=== PATIENT | male | born 1980 | race African-American/Black ===

== ENCOUNTER 2018-04-19 08:05 | Emergency (ER) | payer MEDICAID, OTHER ==
[~2018-04-19] VITALS: Ht 172.7 cm; Wt 60.0 kg
[~2018-04-19 08:05] MED LIST: INSULIN
[2018-04-19 08:33] VITALS: BP 155/94
[2018-04-19 09:31] LABS: BASOPHILS % 0.4 % (0.0-2.0); EOSINOPHILS % 0.4 % (0.0-5.0); HEMATOCRIT. 44.6 % (42.0-52.0); HEMOGLOBIN. 14.9 g/dL (14.0-18.0); LYMPHOCYTES % 13.2 % (20.0-50.0); MEAN CORPUSCULAR HEMOGLOBIN 31.4 pg (28.0-32.0); MEAN CORPUSCULAR VOLUME 94.1 fL (80.0-94.0); MEAN PLATELET VOLUME 9.5 fl (7.4-10.4); MONOCYTES % 5.9 % (2.0-8.0); NEUTROPHILS % 80.1 % (40.0-76.0); PLATELET 197 x1000/uL (130-400); RED BLOOD CELL COUNT 4.74 mill/uL (4.7-6.1); RED CELL DISTRIBUTION WIDTH 13.8 % (11.6-14.6)
[2018-04-19 09:34] LABS: CHLORIDE 103 mEq/L (98-107)
== END 2018-04-19 10:38 | disposition home or self-care (01) ==
LOC: ER 08:05
DX: E11.649 Type 2 diabetes mellitus with hypoglycemia without coma (principal); I45.10 Unspecified right bundle-branch block; Z79.4 Long term (current) use of insulin; W01.0XXA Fall on same level from slipping, tripping and stumbling without subsequent striking against object, initial encounter; Y93.89 Activity, other specified; Y92.018 Other place in single-family (private) house as the place of occurrence of the external cause
CPT/HCPCS: 36415; 80053; 82962; 85025; 93005; 99285

== ENCOUNTER 2018-04-25 12:15 | Emergency (ER) | payer MEDICAID ==
[~2018-04-25] VITALS: Ht 167.6 cm; Wt 71.0 kg
[2018-04-25 12:16] VITALS: BP 186/92
== END 2018-04-25 13:14 | disposition left against medical advice (07) ==
LOC: ER 12:24
DX: E16.2 Hypoglycemia, unspecified (principal); Z53.21 Procedure and treatment not carried out due to patient leaving prior to being seen by health care provider

== ENCOUNTER 2018-12-08 09:29 | Inpatient (IN) | payer MEDICAID ==
[~2018-12-08] VITALS: Ht 165.1 cm; Wt 61.2 kg
[2018-12-08] MEDS ORDERED: PIPERACILLIN/TAZ 3.375G PREMIX 50 ML IV ONE (10:30)
[2018-12-08] MEDS ORDERED: VANCOMYCIN 1 G PREMIX 200 ML IV ONE (10:30)
[2018-12-08] MEDS ORDERED: HYDROCODONE/ACETAMINOPHEN 5/325MG TABLET PO ONE (10:30)
[2018-12-08] MEDS ORDERED: ONDANSETRON HCL 4MG/2ML INJ IV ONE (10:30)
[2018-12-08] MEDS ORDERED: SODIUM CHLORIDE 0.9% 1000ML BAG (SEPSIS BOLUS) IV ONE (10:30)
[2018-12-08 10:39] LABS: BASOPHILS % 0.9 % (0.0-2.0); EOSINOPHILS % 1.9 % (0.0-5.0); HEMATOCRIT. 42.4 % (42.0-52.0); HEMOGLOBIN. 13.9 g/dL (14.0-18.0); LYMPHOCYTES % 14.5 % (20.0-50.0); MEAN CORPUSCULAR HEMOGLOBIN 30.1 pg (28.0-32.0); MEAN CORPUSCULAR VOLUME 91.6 fL (80.0-94.0); MEAN PLATELET VOLUME 9.5 fl (7.4-10.4); NEUTROPHILS % 75.7 % (40.0-76.0); PLATELET 423 x1000/uL (130-400); RED BLOOD CELL COUNT 4.63 mill/uL (4.7-6.1); RED CELL DISTRIBUTION WIDTH 12.4 % (11.6-14.6)
[2018-12-08 10:45] LABS: CHLORIDE 97 mEq/L (98-107)
[2018-12-08 10:49] LABS: ETHANOL BLOOD < 10 mg/dL
[2018-12-08 13:10] LABS: CLARITY URINE CLEAR (CLEAR); COLOR URINE YELLOW (YELLOW); KETONES URINE 1+ (NEGATIVE); LEUKOCYTE ESTERASE URINE NEGATIVE (NEGATIVE); NITRITE URINE NEGATIVE (NEGATIVE); OCCULT BLOOD URINE TRACE (NEGATIVE); PH URINE 5.5 (4.5-8.0); PROTEIN URINE 3+ (NEGATIVE); SPECIFIC GRAVITY URINE 1.026 (1.005-1.030); UROBILINOGEN URINE 0.2 E.U./dL (0.2-1.0)
[2018-12-08 14:21] LABS: *AMPHETAMINES SCREEN URINE NEGATIVE (NEGATIVE); *BARBITURATES SCREEN URINE NEGATIVE (NEGATIVE); *BENZODIAZEPINES SCREEN URINE NEGATIVE (NEGATIVE); *COCAINE SCREEN URINE NEGATIVE (NEGATIVE); METHADONE URINE SCREEN NEGATIVE (NEGATIVE)
[2018-12-08 14:22] LABS: CANNABINOID URINE SCREEN PRESUMTIVE POSITIVE (NEGATIVE); OPIATES URINE SCREEN NEGATIVE (NEGATIVE); PHENCYCLIDINE URINE SCREEN NEGATIVE (NEGATIVE)
[2018-12-08] MEDS ORDERED: INSULIN REGULAR (HUMULIN R) 300UNITS/3ML IV ONE (15:00)
[2018-12-08] MEDS ORDERED: DOCUSATE SODIUM 100MG CAPSULE PO PRN (15:15)
[2018-12-08] MEDS ORDERED: ONDANSETRON HCL 4MG/2ML INJ IV PRN (15:15)
[2018-12-08] MEDS ORDERED: DEXTROSE 50% WATER 50ML SYRINGE IV PRN ×3 (15:15→17:45)
[2018-12-08] MEDS ORDERED: ACETAMINOPHEN 650MG/20.3ML UDC GT PRN (15:15)
[2018-12-08] MEDS: HYDROCODONE/ACETAMINOPHEN 5/325MG TABLET PO PRN ×2 (16:50→22:28)
[2018-12-08 17:09] VITALS: BP 168/78
[2018-12-08] MEDS: BLOOD SUGAR DIAGNOSTIC STRIP TEST SCH ×2 (17:20→21:00)
[2018-12-08] MEDS ORDERED: INSULIN LISPRO 100 UNITS/ML SUBCUT SCH ×2 (17:45→17:50)
[2018-12-08] MEDS: INSULIN LISPRO 100 UNITS/ML SUBCUT SCH ×2 (18:19→21:41)
[2018-12-08 20:00] VITALS: BP 149/83
[2018-12-08] MEDS ORDERED: INSULIN GLARGINE UD 100 UNITS/ML SYR SUBCUT SCH (22:00)
[2018-12-08] MEDS: VANCOMYCIN 1250MG in DEXTROSE 5% WATER 250ML IV SCH (22:28)
[2018-12-08] MEDS: INSULIN GLARGINE UD 100 UNITS/ML SYR SUBCUT SCH (22:48)
[2018-12-08] MEDS: PIPERACILLIN/TAZ 3.375G PREMIX 50 ML IV SCH (22:55)
[2018-12-09] VITALS: BP 132/79
[2018-12-09] MEDS: PIPERACILLIN/TAZ 3.375G PREMIX 50 ML IV SCH ×4 (02:17→20:25)
[2018-12-09 04:00] VITALS: BP 153/73
[2018-12-09] MEDS: VANCOMYCIN 1250MG in DEXTROSE 5% WATER 250ML IV SCH ×3 (05:18→21:56)
[2018-12-09 05:49] LABS: HEMATOCRIT. 35.5 % (42.0-52.0); HEMOGLOBIN. 11.9 g/dL (14.0-18.0); LYMPHOCYTES % 19.8 % (20.0-50.0); MEAN CORPUSCULAR HEMOGLOBIN 30.6 pg (28.0-32.0); MEAN CORPUSCULAR VOLUME 91.5 fL (80.0-94.0); MEAN PLATELET VOLUME 9.6 fl (7.4-10.4); MONOCYTES % 7.2 % (2.0-8.0); PLATELET 366 x1000/uL (130-400); RED BLOOD CELL COUNT 3.88 mill/uL (4.7-6.1)
[2018-12-09] MEDS: BLOOD SUGAR DIAGNOSTIC STRIP TEST SCH ×4 (06:34→21:57)
[2018-12-09] MEDS: OMEPRAZOLE 20MG CAPSULE EXTENDED RELEASE PO SCH (06:34)
[2018-12-09 06:51] LABS: CHLORIDE 102 mEq/L (98-107)
[2018-12-09] MEDS: INSULIN LISPRO 100 UNITS/ML SUBCUT SCH ×4 (07:50→23:06)
[2018-12-09 08:00] VITALS: BP 176/90
[2018-12-09] MEDS: HYDROCODONE/ACETAMINOPHEN 5/325MG TABLET PO PRN (09:04)
[2018-12-09 12:00] VITALS: BP 171/85
[2018-12-09] MEDS ORDERED: LISINOPRIL 10MG TABLET PO SCH (14:15)
[2018-12-09] MEDS ORDERED: TETANUS, DIPHTHERIA, PERTUSSIS VAC/PF 0.5ML (>7YR OLD) IM ONE (15:45)
[2018-12-09 16:00] VITALS: BP 184/85
[2018-12-09 20:00] VITALS: BP 158/86
[2018-12-09] MEDS: ATORVASTATIN CALCIUM 20MG TABLET PO SCH (20:35)
[2018-12-09] MEDS: AMLODIPINE 5MG TABLET PO SCH (20:36)
[2018-12-09] MEDS: LISINOPRIL 10MG TABLET PO SCH (20:36)
[2018-12-09] MEDS: INSULIN GLARGINE UD 100 UNITS/ML SYR SUBCUT SCH (23:06)
[2018-12-10] VITALS: BP 136/64
[2018-12-10] MEDS: PIPERACILLIN/TAZ 3.375G PREMIX 50 ML IV SCH ×4 (01:01→20:00)
[2018-12-10 04:00] VITALS: BP 134/81
[2018-12-10] MEDS: VANCOMYCIN 1250MG in DEXTROSE 5% WATER 250ML IV SCH ×3 (06:23→21:54)
[2018-12-10] MEDS: BLOOD SUGAR DIAGNOSTIC STRIP TEST SCH ×4 (06:24→20:50)
[2018-12-10] MEDS: OMEPRAZOLE 20MG CAPSULE EXTENDED RELEASE PO SCH (06:24)
[2018-12-10 07:08] LABS: BASOPHILS % 1.1 % (0.0-2.0); EOSINOPHILS % 2.2 % (0.0-5.0); HEMOGLOBIN. 12.6 g/dL (14.0-18.0); LYMPHOCYTES % 19.5 % (20.0-50.0); MEAN CORPUSCULAR HEMOGLOBIN 30.2 pg (28.0-32.0); MEAN CORPUSCULAR VOLUME 91.3 fL (80.0-94.0); MEAN PLATELET VOLUME 9.8 fl (7.4-10.4); MONOCYTES % 6.1 % (2.0-8.0); NEUTROPHILS % 71.1 % (40.0-76.0); PLATELET 375 x1000/uL (130-400); RED BLOOD CELL COUNT 4.16 mill/uL (4.7-6.1); RED CELL DISTRIBUTION WIDTH 12.1 % (11.6-14.6)
[2018-12-10 08:00] VITALS: BP 137/72
[2018-12-10 08:37] LABS: CHLORIDE 97 mEq/L (98-107)
[2018-12-10] MEDS: LISINOPRIL 10MG TABLET PO SCH ×2 (08:48→20:50)
[2018-12-10] MEDS: AMLODIPINE 5MG TABLET PO SCH ×2 (08:49→20:50)
[2018-12-10 09:00] LABS: LDL CHOLESTEROL 83 mg/dL (5-100)
[2018-12-10 09:01] LABS: HDL CHOLESTEROL 47 mg/dL (40-59)
[2018-12-10] MEDS: INSULIN LISPRO 100 UNITS/ML SUBCUT SCH ×4 (09:07→22:07)
[2018-12-10] MEDS: HYDROCODONE/ACETAMINOPHEN 5/325MG TABLET PO PRN ×2 (09:31→22:01)
[2018-12-10 12:00] VITALS: BP 123/66
[2018-12-10 16:00] VITALS: BP 145/79
[2018-12-10 20:00] VITALS: BP 152/82
[2018-12-10] MEDS: ATORVASTATIN CALCIUM 20MG TABLET PO SCH (20:50)
[2018-12-10] MEDS ORDERED: INSULIN GLARGINE UD 100 UNITS/ML SYR SUBCUT SCH (22:00)
[2018-12-11] VITALS: BP 125/63
[2018-12-11] MEDS: PIPERACILLIN/TAZ 3.375G PREMIX 50 ML IV SCH ×3 (01:58→13:48)
[2018-12-11 04:00] VITALS: BP 105/63
[2018-12-11] MEDS: VANCOMYCIN 1250MG in DEXTROSE 5% WATER 250ML IV SCH ×2 (06:00→14:56)
[2018-12-11] MEDS: BLOOD SUGAR DIAGNOSTIC STRIP TEST SCH ×2 (06:34→12:20)
[2018-12-11 08:00] VITALS: BP 147/76
[2018-12-11 08:03] LABS: CHLORIDE 100 mEq/L (98-107)
[2018-12-11 08:08] LABS: BASOPHILS % 0.7 % (0.0-2.0); EOSINOPHILS % 2.4 % (0.0-5.0); HEMATOCRIT. 35.1 % (42.0-52.0); HEMOGLOBIN. 11.6 g/dL (14.0-18.0); LYMPHOCYTES % 20.3 % (20.0-50.0); MEAN CORPUSCULAR HEMOGLOBIN 30.5 pg (28.0-32.0); MEAN CORPUSCULAR VOLUME 92.2 fL (80.0-94.0); MEAN PLATELET VOLUME 9.3 fl (7.4-10.4); MONOCYTES % 6.9 % (2.0-8.0); NEUTROPHILS % 69.7 % (40.0-76.0); PLATELET 401 x1000/uL (130-400); RED BLOOD CELL COUNT 3.81 mill/uL (4.7-6.1); RED CELL DISTRIBUTION WIDTH 12.2 % (11.6-14.6)
[2018-12-11] MEDS: LISINOPRIL 10MG TABLET PO SCH (08:49)
[2018-12-11] MEDS: AMLODIPINE 5MG TABLET PO SCH (08:49)
[2018-12-11] MEDS: INSULIN LISPRO 100 UNITS/ML SUBCUT SCH ×2 (08:54→13:56)
[2018-12-11] MEDS: HYDROCODONE/ACETAMINOPHEN 5/325MG TABLET PO PRN (08:57)
[2018-12-11] MEDS ORDERED: FAMOTIDINE 20MG TABLET PO SCH (09:00)
[2018-12-11] MEDS ORDERED: LIDOCAINE HCL 1% 20ML VIAL (Pyxis) INJ ONE ×2 (09:45→10:17)
[2018-12-11] MEDS ORDERED: SODIUM BICARBONATE 4% (2.4MEQ) 5ML VIAL IV ONE (09:45)
[2018-12-11 12:00] VITALS: BP 139/80
[2018-12-11] MEDS ORDERED: INSULIN GLARGINE UD 100 UNITS/ML SYR SUBCUT NR (13:30)
[2018-12-11 16:00] VITALS: BP 117/67
[2018-12-11 16:01] VITALS: BP 139/80
== END 2018-12-11 19:13 | disposition home or self-care (01) | DRG 344 ==
LOC: ER 09:40 → 6EST 11:46 → EDBEDREQ 11:52 → ENRESERV 13:03
PROVIDERS: ADMIT Family Medicine Adult Medicine; ATTEND Family Medicine Adult Medicine
PROC: 02HV33Z Insertion of Infusion Device into Superior Vena Cava, Percutaneous Approach (ICD-10-PCS; principal; 2018-12-11)
PROC: B5181ZA Fluoroscopy of Superior Vena Cava using Low Osmolar Contrast, Guidance (ICD-10-PCS; 2018-12-11)
PROC: B548ZZA Ultrasonography of Superior Vena Cava, Guidance (ICD-10-PCS; 2018-12-11)
DX: E10.69 Type 1 diabetes mellitus with other specified complication (principal); M86.8X7 Other osteomyelitis, ankle and foot; E43 Unspecified severe protein-calorie malnutrition; A48.0 Gas gangrene; E10.52 Type 1 diabetes mellitus with diabetic peripheral angiopathy with gangrene; E10.65 Type 1 diabetes mellitus with hyperglycemia; E87.1 Hypo-osmolality and hyponatremia; L97.529 Non-pressure chronic ulcer of other part of left foot with unspecified severity; D64.9 Anemia, unspecified; I10 Essential (primary) hypertension; F17.290 Nicotine dependence, other tobacco product, uncomplicated; Z83.3 Family history of diabetes mellitus; Z79.4 Long term (current) use of insulin; Z82.49 Family history of ischemic heart disease and other diseases of the circulatory system
CPT/HCPCS: 36415; 36569; 71045; 73630; 73721; 76937; 77001; 80048; 80061; 80202; 80305; 82962; 83036; 83605; 84145; 85651; 86140; 90715; 93005; 93306; 93922; 96361; 96374; 99285; C1725; G0482; J1815; J2405; J2543; J3370; J3490; J7030; J7040; J7060

== ENCOUNTER 2019-10-21 23:23 | Inpatient (IN) | payer MEDICAID ==
[~2019-10-21] VITALS: Ht 167.6 cm; Wt 53.1 kg
[2019-10-21] MEDS ORDERED: ONDANSETRON HCL 4MG/2ML INJ IV STA (23:47)
[2019-10-21] MEDS ORDERED: SODIUM CHLORIDE 0.9% 1,000 ML IV ONE (23:47)
[2019-10-22] VITALS (7 sets, daily range): BP systolic 154–197; BP diastolic 69–99
[2019-10-22 00:23] LABS: CLARITY URINE CLEAR (CLEAR); COLOR URINE YELLOW (YELLOW); KETONES URINE 4+ (NEGATIVE); LEUKOCYTE ESTERASE URINE NEGATIVE (NEGATIVE); NITRITE URINE NEGATIVE (NEGATIVE); OCCULT BLOOD URINE TRACE (NEGATIVE); PROTEIN URINE 1+ (NEGATIVE); SPECIFIC GRAVITY URINE 1.031 (1.005-1.030); UROBILINOGEN URINE 0.2 E.U./dL (0.2-1.0)
[2019-10-22 00:23] LABS: HEMATOCRIT. 43.9 % (42.0-52.0); HEMOGLOBIN. 14.4 g/dL (14.0-18.0); MEAN CORPUSCULAR HEMOGLOBIN 31.6 pg (28.0-32.0); MEAN CORPUSCULAR VOLUME 96.2 fL (80.0-94.0); MEAN PLATELET VOLUME 10.1 fl (7.4-10.4); PLATELET 216 x1000/uL (130-400); RED BLOOD CELL COUNT 4.56 mill/uL (4.7-6.1)
[2019-10-22 00:31] LABS: CHLORIDE 100 mEq/L (98-107)
[2019-10-22 00:38] LABS: ETHANOL BLOOD < 10 mg/dL
[2019-10-22 00:40] LABS: *COCAINE SCREEN URINE NEGATIVE (NEGATIVE); METHADONE URINE SCREEN NEGATIVE (NEGATIVE); OPIATES URINE SCREEN NEGATIVE (NEGATIVE)
[2019-10-22 00:41] LABS: *AMPHETAMINES SCREEN URINE NEGATIVE (NEGATIVE); *BARBITURATES SCREEN URINE NEGATIVE (NEGATIVE); *BENZODIAZEPINES SCREEN URINE NEGATIVE (NEGATIVE); CANNABINOID URINE SCREEN NEGATIVE (NEGATIVE); PHENCYCLIDINE URINE SCREEN NEGATIVE (NEGATIVE)
[2019-10-22] MEDS ORDERED: METOCLOPRAMIDE HCL 10MG/2ML VIAL IV ONE ×2 (00:45→02:00)
[2019-10-22] MEDS ORDERED: SODIUM CHLORIDE 0.9% 1000ML BAG (SEPSIS BOLUS) IV NR (00:45)
[2019-10-22] MEDS ORDERED: INSULIN REGULAR (DRIP) 100 UNITS in SODIUM CHLORIDE 0.9% 100 ML IV NR ×2 (00:45→01:00)
[2019-10-22] MEDS ORDERED: ONDANSETRON HCL 4MG/2ML INJ IV ONE (02:00)
[2019-10-22 02:03] LABS: BETA HYDROXYBUTYRATE 10.7 mMol/L (0.0-0.3)
[2019-10-22] MEDS ORDERED: SODIUM CHLORIDE 0.9% 1,000 ML IV SCH (02:05)
[2019-10-22] MEDS ORDERED: DIPHENHYDRAMINE 50MG/ML VIAL IV PRN (02:15)
[2019-10-22] MEDS ORDERED: INSULIN REGULAR (DRIP) 100 UNITS in SODIUM CHLORIDE 0.9% 100 ML IV ONE (02:15)
[2019-10-22] MEDS ORDERED: HYDRALAZINE 20MG/ML VIAL IV PRN (02:15)
[2019-10-22] MEDS ORDERED: POTASSIUM CHLORIDE INJ 40 MEQ in DEXT 5% WATER 250 ML IV ONE (04:30)
[2019-10-22] MEDS ORDERED: DEXT 5%/0.45% NACL 1000ML 1,000 ML IV SCH (05:00)
[2019-10-22 05:10] LABS: ATYPICAL LYMPHOCYTES 1; PLATELET ESTIMATE NORMAL
[2019-10-22 05:59] LABS: CHLORIDE 116 mEq/L (98-107)
[2019-10-22 06:03] LABS: HEMOGLOBIN. 13.2 g/dL (14.0-18.0); MEAN CORPUSCULAR HEMOGLOBIN 31.5 pg (28.0-32.0); MEAN CORPUSCULAR VOLUME 93.5 fL (80.0-94.0); MEAN PLATELET VOLUME 9.8 fl (7.4-10.4); PLATELET 210 x1000/uL (130-400); RED BLOOD CELL COUNT 4.18 mill/uL (4.7-6.1); RED CELL DISTRIBUTION WIDTH 12.6 % (11.6-14.6)
[2019-10-22 06:13] LABS: PHOSPHORUS 0.9 mg/dL (2.5-4.9)
[2019-10-22] MEDS ORDERED: POTASSIUM CHLORIDE IV SCH (07:00)
[2019-10-22] MEDS ORDERED: [UNRECOGNIZED DRUG - OTHER] IV SCH (07:00)
[2019-10-22] MEDS ORDERED: POTASSIUM PHOS M BASIC D BASIC IV SCH (07:00)
[2019-10-22 07:09] LABS: PLATELET ESTIMATE NORMAL
[2019-10-22] MEDS: ONDANSETRON HCL 4MG/2ML INJ IV PRN ×2 (10:42→15:26)
[2019-10-22] MEDS ORDERED: DEXTROSE 50% WATER 50ML SYRINGE IV PRN (11:00)
[2019-10-22] MEDS ORDERED: INSULIN GLARGINE UD 100 UNITS/ML SYR SUBCUT SCH (11:00)
[2019-10-22] MEDS ORDERED: SODIUM CHLORIDE 0.45% 1,000 ML IV SCH (11:00)
[2019-10-22] MEDS ORDERED: POTASSIUM PHOS,M-BASIC-D-BASIC 30 MMOL in DEXT 5% WATER 500 ML IV ONE (11:30)
[2019-10-22] MEDS: FAMOTIDINE 20MG/2ML VIAL IV SCH ×2 (11:30→20:14)
[2019-10-22] MEDS: BLOOD SUGAR DIAGNOSTIC STRIP TEST SCH ×3 (13:00→20:14)
[2019-10-22] MEDS: INSULIN LISPRO 100 UNITS/ML SUBCUT SCH ×3 (13:20→20:24)
[2019-10-22] MEDS: SODIUM CHLORIDE 0.45% 1,000 ML IV SCH (19:00)
[2019-10-22 20:49] LABS: CHLORIDE 110 mEq/L (98-107)
[2019-10-22 20:54] LABS: PHOSPHORUS 2.9 mg/dL (2.5-4.9)
[2019-10-23] VITALS (12 sets, daily range): BP systolic 141–178; BP diastolic 64–96
[2019-10-23] MEDS: HYDRALAZINE 20MG/ML VIAL IV PRN ×4 (00:30→22:17)
[2019-10-23] MEDS: SODIUM CHLORIDE 0.45% 1,000 ML IV SCH ×4 (02:34→17:23)
[2019-10-23] MEDS: KETOROLAC 30MG/ML VIAL IV PRN (04:18)
[2019-10-23] MEDS: BLOOD SUGAR DIAGNOSTIC STRIP TEST SCH ×4 (05:39→21:54)
[2019-10-23 06:51] LABS: HEMATOCRIT. 37.9 % (42.0-52.0); HEMOGLOBIN. 12.6 g/dL (14.0-18.0); MEAN CORPUSCULAR HEMOGLOBIN 31.3 pg (28.0-32.0); MEAN CORPUSCULAR VOLUME 94.1 fL (80.0-94.0); MEAN PLATELET VOLUME 9.6 fl (7.4-10.4); PLATELET 181 x1000/uL (130-400); RED BLOOD CELL COUNT 4.03 mill/uL (4.7-6.1); RED CELL DISTRIBUTION WIDTH 12.8 % (11.6-14.6)
[2019-10-23 07:20] LABS: CHLORIDE 107 mEq/L (98-107)
[2019-10-23 07:36] LABS: PHOSPHORUS 3.2 mg/dL (2.5-4.9)
[2019-10-23 07:44] LABS: BETA HYDROXYBUTYRATE 6.4 mMol/L (0.0-0.3)
[2019-10-23] MEDS: FAMOTIDINE 20MG/2ML VIAL IV SCH ×2 (08:09→21:55)
[2019-10-23] MEDS: INSULIN LISPRO 100 UNITS/ML SUBCUT SCH ×4 (08:10→21:00)
[2019-10-23] MEDS ORDERED: INSULIN GLARGINE UD 100 UNITS/ML SYR SUBCUT SCH (13:00)
[2019-10-23 13:06] LABS: PLATELET ESTIMATE NORMAL
[2019-10-23] MEDS: DILTIAZEM HCL 60MG TABLET PO SCH ×2 (13:52→21:55)
[2019-10-23] MEDS: INSULIN GLARGINE UD 100 UNITS/ML SYR SUBCUT SCH (14:54)
[2019-10-24] VITALS (10 sets, daily range): BP systolic 130–178; BP diastolic 61–101
[2019-10-24] MEDS: SODIUM CHLORIDE 0.45% 1,000 ML IV SCH ×4 (01:58→21:20)
[2019-10-24] MEDS: BLOOD SUGAR DIAGNOSTIC STRIP TEST SCH ×4 (06:41→21:26)
[2019-10-24 07:01] LABS: BASOPHILS % 0.3 % (0.0-2.0); EOSINOPHILS % 0.2 % (0.0-5.0); HEMATOCRIT. 40.4 % (42.0-52.0); HEMOGLOBIN. 13.6 g/dL (14.0-18.0); LYMPHOCYTES % 7.7 % (20.0-50.0); MEAN CORPUSCULAR HEMOGLOBIN 31.5 pg (28.0-32.0); MEAN CORPUSCULAR VOLUME 93.6 fL (80.0-94.0); MEAN PLATELET VOLUME 9.5 fl (7.4-10.4); MONOCYTES % 5.2 % (2.0-8.0); NEUTROPHILS % 86.6 % (40.0-76.0); PLATELET 183 x1000/uL (130-400); RED BLOOD CELL COUNT 4.31 mill/uL (4.7-6.1); RED CELL DISTRIBUTION WIDTH 12.6 % (11.6-14.6)
[2019-10-24] MEDS: DILTIAZEM HCL 60MG TABLET PO SCH ×3 (07:01→22:43)
[2019-10-24] MEDS: INSULIN LISPRO 100 UNITS/ML SUBCUT SCH ×4 (07:20→21:00)
[2019-10-24] MEDS: FAMOTIDINE 20MG/2ML VIAL IV SCH ×2 (08:54→21:23)
[2019-10-24 09:08] LABS: CHLORIDE 106 mEq/L (98-107)
[2019-10-24 09:13] LABS: PHOSPHORUS 2.6 mg/dL (2.5-4.9)
[2019-10-24 09:15] LABS: BETA HYDROXYBUTYRATE 4.4 mMol/L (0.0-0.3)
[2019-10-24] MEDS: KETOROLAC 30MG/ML VIAL IV PRN (11:15)
[2019-10-24] MEDS ORDERED: MAGNESIUM 1 G PREMIX 100 ML IV SCH (13:00)
[2019-10-24] MEDS: INSULIN GLARGINE UD 100 UNITS/ML SYR SUBCUT SCH (13:14)
[2019-10-24] MEDS: HYDRALAZINE 20MG/ML VIAL IV PRN (21:23)
[2019-10-25] VITALS (13 sets, daily range): BP systolic 130–179; BP diastolic 63–91
[2019-10-25] MEDS: SODIUM CHLORIDE 0.45% 1,000 ML IV SCH ×3 (02:07→22:15)
[2019-10-25] MEDS: HYDRALAZINE 20MG/ML VIAL IV PRN ×3 (02:22→20:56)
[2019-10-25] MEDS: DILTIAZEM HCL 60MG TABLET PO SCH ×2 (06:16→13:00)
[2019-10-25] MEDS: BLOOD SUGAR DIAGNOSTIC STRIP TEST SCH ×4 (06:59→20:38)
[2019-10-25 07:16] LABS: BASOPHILS % 0.6 % (0.0-2.0); EOSINOPHILS % 0.1 % (0.0-5.0); HEMATOCRIT. 40.2 % (42.0-52.0); HEMOGLOBIN. 13.9 g/dL (14.0-18.0); MEAN CORPUSCULAR HEMOGLOBIN 32.1 pg (28.0-32.0); MEAN CORPUSCULAR VOLUME 92.6 fL (80.0-94.0); MEAN PLATELET VOLUME 9.8 fl (7.4-10.4); MONOCYTES % 6.1 % (2.0-8.0); NEUTROPHILS % 78.2 % (40.0-76.0); PLATELET 172 x1000/uL (130-400); RED BLOOD CELL COUNT 4.34 mill/uL (4.7-6.1); RED CELL DISTRIBUTION WIDTH 12.4 % (11.6-14.6)
[2019-10-25] MEDS: INSULIN LISPRO 100 UNITS/ML SUBCUT SCH ×4 (07:20→20:38)
[2019-10-25 07:49] LABS: CHLORIDE 104 mEq/L (98-107)
[2019-10-25 07:55] LABS: PHOSPHORUS 2.4 mg/dL (2.5-4.9)
[2019-10-25] MEDS: FAMOTIDINE 20MG/2ML VIAL IV SCH ×2 (08:20→20:56)
[2019-10-25] MEDS ORDERED: POTASSIUM CHLORIDE 20MEQ TABLET SR PO NR ×2 (09:00→13:15)
[2019-10-25] MEDS: INSULIN GLARGINE UD 100 UNITS/ML SYR SUBCUT SCH (11:10)
[2019-10-25] MEDS ORDERED: POTASSIUM PHOS,M-BASIC-D-BASIC 15 MMOL in DEXT 5% WATER 245 ML IV NR (15:00)
[2019-10-25] MEDS ORDERED: DILTIAZEM HCL 5MG/ML 5ML VIAL IV NR (18:00)
[2019-10-25 19:52] LABS: T4 FREE 1.14 ng/dL (0.76-1.46)
[2019-10-25] MEDS: LOSARTAN POTASSIUM 100 MG TABLET PO SCH (19:59)
[2019-10-25] MEDS: METOPROLOL TARTRATE 50MG TABLET PO SCH (20:00)
[2019-10-25] MEDS: DILTIAZEM HCL 90MG TABLET PO SCH (22:15)
[2019-10-26] VITALS (49 sets, daily range): BP systolic 93–177; BP diastolic 49–99
[2019-10-26] MEDS: SODIUM CHLORIDE 0.45% 1,000 ML IV SCH
[2019-10-26] MEDS: HYDRALAZINE 20MG/ML VIAL IV PRN ×2 (01:46→09:03)
[2019-10-26] MEDS: BLOOD SUGAR DIAGNOSTIC STRIP TEST SCH ×4 (06:50→21:35)
[2019-10-26] MEDS: INSULIN LISPRO 100 UNITS/ML SUBCUT SCH ×4 (07:20→21:00)
[2019-10-26] MEDS ORDERED: SODIUM CHLORIDE 0.9% 1,000 ML IV SCH (08:30)
[2019-10-26] MEDS: LOSARTAN POTASSIUM 100 MG TABLET PO SCH (08:55)
[2019-10-26] MEDS: METOPROLOL TARTRATE 50MG TABLET PO SCH ×2 (08:55→21:35)
[2019-10-26] MEDS: FAMOTIDINE 20MG/2ML VIAL IV SCH ×2 (08:55→21:34)
[2019-10-26] MEDS ORDERED: GADOBENATE DIMEGLUMINE 529 MG/ML 10ML IV ONE (09:40)
[2019-10-26 10:04] LABS: CHLORIDE 104 mEq/L (98-107)
[2019-10-26 10:40] LABS: PHOSPHORUS 3.5 mg/dL (2.5-4.9)
[2019-10-26] MEDS: NICARDIPINE 100 MG in SODIUM CHLORIDE 0.9% 60 ML IV PRN (10:51)
[2019-10-26] MEDS: INSULIN GLARGINE UD 100 UNITS/ML SYR SUBCUT SCH (10:56)
[2019-10-26] MEDS ORDERED: DEXAMETHASONE 4MG/ML 1ML VIAL IV SCH (14:00)
[2019-10-26] MEDS ORDERED: POTASSIUM CHLORIDE 20MEQ TABLET SR PO SCH (14:15)
[2019-10-26] MEDS: ASPIRIN 81MG EC TABLET PO SCH (14:41)
[2019-10-26] MEDS: DILTIAZEM HCL 90MG TABLET PO SCH ×2 (14:42→23:14)
[2019-10-26] MEDS: POLYVINYL ALCOHOL OPHTH DROPS 15ML BOTHEYE SCH ×2 (17:18→23:14)
[2019-10-26] MEDS ORDERED: MAGNESIUM 1 G PREMIX 100 ML IV ONE (21:45)
[2019-10-26] MEDS ORDERED: POTASSIUM CHLORIDE 20MEQ TABLET SR PO NR (23:00)
[2019-10-26] MEDS ORDERED: MAGNESIUM 1 G PREMIX 100 ML IV NR (23:00)
[2019-10-26] MEDS: HYDRALAZINE HCL 50MG TABLET PO SCH (23:16)
[2019-10-27] VITALS (101 sets, daily range): BP systolic 106–179; BP diastolic 45–132
[2019-10-27] MEDS ORDERED: KETOROLAC 30MG/ML VIAL IV PRN (04:45)
[2019-10-27 05:35] LABS: CHLORIDE 108 mEq/L (98-107)
[2019-10-27 05:46] LABS: LDL CHOLESTEROL 95 mg/dL (5-100)
[2019-10-27 05:48] LABS: HDL CHOLESTEROL 77 mg/dL (40-59)
[2019-10-27] MEDS: BLOOD SUGAR DIAGNOSTIC STRIP TEST SCH ×4 (06:25→21:59)
[2019-10-27] MEDS: INSULIN LISPRO 100 UNITS/ML SUBCUT SCH ×4 (06:25→21:59)
[2019-10-27] MEDS: HYDRALAZINE HCL 50MG TABLET PO SCH ×3 (06:25→21:57)
[2019-10-27] MEDS: POLYVINYL ALCOHOL OPHTH DROPS 15ML BOTHEYE SCH ×3 (06:26→21:59)
[2019-10-27] MEDS: DILTIAZEM HCL 90MG TABLET PO SCH ×3 (06:27→21:58)
[2019-10-27] MEDS: MORPHINE SULFATE 2 MG/ML CPJ (NOT FOR IM USE) IV PRN ×3 (07:50→18:14)
[2019-10-27] MEDS: METOPROLOL TARTRATE 50MG TABLET PO SCH ×2 (09:38→21:58)
[2019-10-27] MEDS: LOSARTAN POTASSIUM 100 MG TABLET PO SCH (09:38)
[2019-10-27] MEDS: FAMOTIDINE 20MG/2ML VIAL IV SCH ×2 (09:38→21:57)
[2019-10-27] MEDS: ASPIRIN 81MG EC TABLET PO SCH (09:38)
[2019-10-27] MEDS: INSULIN GLARGINE UD 100 UNITS/ML SYR SUBCUT SCH (09:39)
[2019-10-27] MEDS ORDERED: IPRATROPIUM/ALBUTEROL 0.5-3(2.5)MG/3ML NEB HHN PRN (10:15)
[2019-10-27] MEDS ORDERED: BENZONATATE 100MG CAPSULE PO PRN (10:15)
[2019-10-27] MEDS ORDERED: POTASSIUM CHLORIDE 20MEQ TABLET SR PO NR (11:15)
[2019-10-27] MEDS: HYDRALAZINE 20MG/ML VIAL IV PRN ×2 (12:27→18:13)
[2019-10-27] MEDS ORDERED: ACETAMINOPHEN 325MG TABLET PO PRN (14:30)
[2019-10-27] MEDS: METOCLOPRAMIDE HCL 10MG/2ML VIAL IV SCH ×2 (17:21→23:37)
[2019-10-28] VITALS (74 sets, daily range): BP systolic 91–164; BP diastolic 31–93
[2019-10-28] MEDS: HYDRALAZINE 20MG/ML VIAL IV PRN (00:43)
[2019-10-28] MEDS: MORPHINE SULFATE 2 MG/ML CPJ (NOT FOR IM USE) IV PRN (02:07)
[2019-10-28] MEDS: NICARDIPINE 100 MG in SODIUM CHLORIDE 0.9% 60 ML IV PRN (03:06)
[2019-10-28] MEDS ORDERED: MANNITOL 20% (20GM/100ML) BAG 500ML PREMIX IV SCH (03:45)
[2019-10-28] MEDS ORDERED: MORPHINE SULFATE 2 MG/ML CPJ (NOT FOR IM USE) IV PRN (03:45)
[2019-10-28] MEDS ORDERED: DEXAMETHASONE 10 MG/ML VIAL IV SCH (03:45)
[2019-10-28 05:10] LABS: BASOPHILS % 0.6 % (0.0-2.0); EOSINOPHILS % 0.6 % (0.0-5.0); HEMATOCRIT. 38.6 % (42.0-52.0); HEMOGLOBIN. 13.2 g/dL (14.0-18.0); LYMPHOCYTES % 17.7 % (20.0-50.0); MEAN CORPUSCULAR HEMOGLOBIN 31.7 pg (28.0-32.0); MEAN CORPUSCULAR VOLUME 93.2 fL (80.0-94.0); MEAN PLATELET VOLUME 10.4 fl (7.4-10.4); MONOCYTES % 7.6 % (2.0-8.0); NEUTROPHILS % 73.5 % (40.0-76.0); PLATELET 184 x1000/uL (130-400); RED BLOOD CELL COUNT 4.15 mill/uL (4.7-6.1)
[2019-10-28 05:13] LABS: CHLORIDE 101 mEq/L (98-107)
[2019-10-28] MEDS: HYDRALAZINE HCL 50MG TABLET PO SCH ×3 (06:47→21:41)
[2019-10-28] MEDS: DILTIAZEM HCL 90MG TABLET PO SCH ×3 (06:47→21:41)
[2019-10-28] MEDS: BLOOD SUGAR DIAGNOSTIC STRIP TEST SCH ×4 (06:47→21:43)
[2019-10-28] MEDS: DEXAMETHASONE 4MG/ML 1ML VIAL IV SCH ×2 (06:48→11:26)
[2019-10-28] MEDS: POLYVINYL ALCOHOL OPHTH DROPS 15ML BOTHEYE SCH ×3 (06:48→21:43)
[2019-10-28] MEDS: METOCLOPRAMIDE HCL 10MG/2ML VIAL IV SCH ×4 (06:48→23:29)
[2019-10-28] MEDS: INSULIN LISPRO 100 UNITS/ML SUBCUT SCH ×4 (06:49→21:42)
[2019-10-28] MEDS: FAMOTIDINE 20MG/2ML VIAL IV SCH ×2 (08:52→21:42)
[2019-10-28] MEDS: LOSARTAN POTASSIUM 100 MG TABLET PO SCH (08:52)
[2019-10-28] MEDS: METOPROLOL TARTRATE 50MG TABLET PO SCH ×2 (08:52→21:42)
[2019-10-28] MEDS: ASPIRIN 81MG EC TABLET PO SCH (08:52)
[2019-10-28] MEDS: INSULIN GLARGINE UD 100 UNITS/ML SYR SUBCUT SCH (10:35)
[2019-10-28] MEDS ORDERED: ATORVASTATIN CALCIUM 20MG TABLET PO SCH (21:00)
[2019-10-29] VITALS (20 sets, daily range): BP systolic 135–175; BP diastolic 67–105
[2019-10-29] MEDS: HYDRALAZINE 20MG/ML VIAL IV PRN (06:04)
[2019-10-29] MEDS: HYDRALAZINE HCL 50MG TABLET PO SCH (06:04)
[2019-10-29] MEDS: DILTIAZEM HCL 90MG TABLET PO SCH (06:04)
[2019-10-29] MEDS: METOCLOPRAMIDE HCL 10MG/2ML VIAL IV SCH (06:04)
[2019-10-29] MEDS: POLYVINYL ALCOHOL OPHTH DROPS 15ML BOTHEYE SCH (06:05)
[2019-10-29] MEDS: BLOOD SUGAR DIAGNOSTIC STRIP TEST SCH (06:05)
[2019-10-29] MEDS: INSULIN LISPRO 100 UNITS/ML SUBCUT SCH (06:07)
== END 2019-10-29 09:15 | disposition left against medical advice (07) | DRG 45 ==
LOC: ER 23:23 → 3WST 10-22 00:46 → ENRESERV 10-22 07:02 → CANRESERV 10-22 07:02 → EDBEDREQSVC 10-22 11:03 → ENRESERV 10-22 11:38 → MICUSO 10-26 10:52
PROVIDERS: ADMIT Internal Medicine; ATTEND Internal Medicine
PROC: 02HV33Z Insertion of Infusion Device into Superior Vena Cava, Percutaneous Approach (ICD-10-PCS; principal; 2019-10-26)
PROC: B548ZZA Ultrasonography of Superior Vena Cava, Guidance (ICD-10-PCS; 2019-10-26)
DX: I63.9 Cerebral infarction, unspecified (principal); G93.41 Metabolic encephalopathy; E11.10 Type 2 diabetes mellitus with ketoacidosis without coma; G93.89 Other specified disorders of brain; E83.39 Other disorders of phosphorus metabolism; R65.10 Systemic inflammatory response syndrome (SIRS) of non-infectious origin without acute organ dysfunction; D72.829 Elevated white blood cell count, unspecified; B35.9 Dermatophytosis, unspecified; E87.6 Hypokalemia; I45.10 Unspecified right bundle-branch block; F17.210 Nicotine dependence, cigarettes, uncomplicated; Z53.29 Procedure and treatment not carried out because of patient's decision for other reasons; I11.9 Hypertensive heart disease without heart failure; T38.0X5A Adverse effect of glucocorticoids and synthetic analogues, initial encounter; Z79.899 Other long term (current) drug therapy; Z83.3 Family history of diabetes mellitus; Z71.6 Tobacco abuse counseling; Z79.4 Long term (current) use of insulin; Z89.422 Acquired absence of other left toe(s)
CPT/HCPCS: 36415; 70544; 70553; 71045; 76937; 80048; 80053; 80061; 80305; 80320; 81003; 82010; 82962; 83735; 84100; 84439; 84443; 84484; 85025; 93005; 93306; 93880; 96365; 97162; 97166; 99291; A9577; C1725; J0360; J1100; J1815; J1885; J2270; J2405; J2765; J3475; J3480; J3490; J7030; J7040; J7050; J7060; A4315; G0480

== ENCOUNTER 2022-11-02 20:54 | Emergency (ER) | payer MEDICAID ==
[~2022-11-02] VITALS: Ht 167.6 cm; Wt 69.0 kg
[2022-11-02] MEDS ORDERED: DEXTROSE 50% WATER 50ML SYRINGE IV PRN (21:30)
[2022-11-02] MEDS ORDERED: DEXTROSE 50% WATER 50ML SYRINGE IV SCH (21:30)
[2022-11-02 23:42] LABS: BASOPHILS % 0.6 % (0.0-2.0); EOSINOPHILS % 0.7 % (0.0-5.0); HEMATOCRIT. 42.6 % (42.0-52.0); HEMOGLOBIN. 14.2 g/dL (14.0-18.0); LYMPHOCYTES % 16.8 % (20.0-50.0); MEAN CORPUSCULAR HEMOGLOBIN 31.4 pg (28.0-32.0); MEAN CORPUSCULAR VOLUME 93.7 fL (80.0-94.0); MONOCYTES % 6.3 % (2.0-8.0); NEUTROPHILS % 75.6 % (40.0-76.0); PLATELET 237 x1000/uL (130-400); RED BLOOD CELL COUNT 4.54 mill/uL (4.7-6.1); RED CELL DISTRIBUTION WIDTH 13.5 % (11.6-14.6)
[2022-11-02 23:49] LABS: CHLORIDE 108 mEq/L (98-107)
[2022-11-02 23:57] LABS: ETHANOL BLOOD 43 mg/dL
[2022-11-03 01:49] VITALS: BP 137/64
== END 2022-11-03 05:56 | disposition home or self-care (01) ==
LOC: ER 20:54
DX: E11.649 Type 2 diabetes mellitus with hypoglycemia without coma (principal); Z87.891 Personal history of nicotine dependence
CPT/HCPCS: 36415; 80053; 80320; 82962; 85025; 96374; 99283; G0480

== ENCOUNTER 2023-05-06 22:34 | Emergency (ER) | payer MEDICAID ==
[~2023-05-06] VITALS: Ht 167.6 cm; Wt 69.0 kg
[2023-05-06 22:36] VITALS: O2SAT 99
[2023-05-07 00:17] LABS: EOSINOPHILS % 1.3 % (0.0-5.0); HEMATOCRIT. 45.2 % (42.0-52.0); HEMOGLOBIN. 14.8 g/dL (14.0-18.0); LYMPHOCYTES % 17.5 % (20.0-50.0); MEAN CORPUSCULAR HEMOGLOBIN 31.5 pg (28.0-32.0); MEAN CORPUSCULAR VOLUME 96.1 fL (80.0-94.0); MEAN PLATELET VOLUME 9.2 fl (7.4-10.4); MONOCYTES % 8.7 % (2.0-8.0); NEUTROPHILS % 71.5 % (40.0-76.0); PLATELET 195 x1000/uL (130-400); RED CELL DISTRIBUTION WIDTH 12.9 % (11.6-14.6)
[2023-05-07 00:26] LABS: CHLORIDE 107 mEq/L (98-107)
[2023-05-07] MEDS ORDERED: DEXTROSE 50% WATER 50ML SYRINGE IV ONE (00:41)
[2023-05-07] MEDS ORDERED: FOLIC ACID 1 MG, THIAMINE HCL 100 MG, MVI, ADULT NO.1 10 ML in DEXTROSE 5% WATER 1,000 ML IV ONE ×4 (01:00)
[2023-05-07] MEDS ORDERED: CLONIDINE 0.1MG TABLET PO ONE (05:00)
[2023-05-07] MEDS ORDERED: LEVETIRACETAM 500MG PREMIX 100 ML IV ONE ×2 (05:00)
[2023-05-07] MEDS ORDERED: HYDRALAZINE 20MG/ML VIAL IV ONE (05:00)
[2023-05-07 09:35] VITALS: BP 155/75; PULSE 95; RESP 15; TEMP 98.4
== END 2023-05-07 10:20 | disposition home or self-care (01) ==
LOC: ER 22:34 → CANBEDREQ 05-07 10:19 → ER 05-07 10:20
DX: R56.9 Unspecified convulsions (principal); E11.9 Type 2 diabetes mellitus without complications
CPT/HCPCS: 99285; 71045; 80053; 82962 ×2; 83880; 83605 ×2; 85025; 36415; 96365; 96375; J1953; J3490 ×2; J0360; J3411; J7070

== ENCOUNTER 2023-05-14 08:40 | Emergency (ER) | payer MEDICAID ==
[~2023-05-14] VITALS: Ht 167.6 cm; Wt 69.0 kg
[2023-05-14 08:43] VITALS: O2SAT 100
[2023-05-14 09:00] VITALS: BP 221/113; PULSE 98; RESP 16; TEMP 98.5
[2023-05-14 09:18] LABS: CLARITY URINE CLEAR (CLEAR); COLOR URINE YELLOW (YELLOW); KETONES URINE NEGATIVE (NEGATIVE); LEUKOCYTE ESTERASE URINE NEGATIVE (NEGATIVE); NITRITE URINE NEGATIVE (NEGATIVE); OCCULT BLOOD URINE 2+ (NEGATIVE); PROTEIN URINE 4+ (NEGATIVE); SPECIFIC GRAVITY URINE 1.022 (1.005-1.030); UROBILINOGEN URINE 0.2 E.U./dL (0.2-1.0)
[2023-05-14 09:33] LABS: *AMPHETAMINES SCREEN URINE PRESUMTIVE POSITIVE (NEGATIVE); *BARBITURATES SCREEN URINE NEGATIVE (NEGATIVE); *BENZODIAZEPINES SCREEN URINE NEGATIVE (NEGATIVE); *COCAINE SCREEN URINE NEGATIVE (NEGATIVE); CANNABINOID URINE SCREEN PRESUMTIVE POSITIVE (NEGATIVE); METHADONE URINE SCREEN NEGATIVE (NEGATIVE); OPIATES URINE SCREEN NEGATIVE (NEGATIVE); PHENCYCLIDINE URINE SCREEN NEGATIVE (NEGATIVE)
[2023-05-14 09:36] LABS: BASOPHILS % 0.7 % (0.0-2.0); EOSINOPHILS % 0.1 % (0.0-5.0); HEMATOCRIT. 46.7 % (42.0-52.0); HEMOGLOBIN. 15.7 g/dL (14.0-18.0); LYMPHOCYTES % 11.4 % (20.0-50.0); MEAN CORPUSCULAR HEMOGLOBIN 31.5 pg (28.0-32.0); MEAN CORPUSCULAR VOLUME 93.5 fL (80.0-94.0); MEAN PLATELET VOLUME 9.5 fl (7.4-10.4); MONOCYTES % 4.4 % (2.0-8.0); NEUTROPHILS % 83.4 % (40.0-76.0); PLATELET 252 x1000/uL (130-400); RED BLOOD CELL COUNT 4.99 mill/uL (4.7-6.1); RED CELL DISTRIBUTION WIDTH 12.7 % (11.6-14.6)
[2023-05-14 09:45] LABS: CHLORIDE 107 mEq/L (98-107)
[2023-05-14 09:54] LABS: ETHANOL BLOOD < 10 mg/dL (-10)
[2023-05-14 09:56] LABS: CARBAMAZEPINE < 0.5 ug/mL (4-12)
[2023-05-14] MEDS ORDERED: HYDRALAZINE 20MG/ML VIAL IV ONE (10:30)
== END 2023-05-14 11:25 | disposition left against medical advice (07) ==
LOC: ER 08:40 → CANBEDREQ 05-15 21:25
DX: R56.9 Unspecified convulsions (principal); E11.9 Type 2 diabetes mellitus without complications; I10 Essential (primary) hypertension
CPT/HCPCS: 80053; 80305; 81003; 80320; 80156; 80185; 82962; 80165; 85025; 36415; 70450; 72125; 96374; 99285; J0360; Z7610; G0480

== ENCOUNTER 2023-07-17 04:37 | Emergency (ER) | payer MEDICAID ==
[~2023-07-17] VITALS: Ht 170.2 cm; Wt 75.0 kg
[2023-07-17 04:42] VITALS: O2SAT 98
[2023-07-17] MEDS ORDERED: DEXTROSE 50% WATER 50ML SYRINGE IV ONE ×2 (04:42→04:45)
[2023-07-17] MEDS ORDERED: DEXT 10% WATER 1,000 ML IV ONE (04:45)
[2023-07-17 05:20] VITALS: BP 110/74; PULSE 98; RESP 18; TEMP 98.4
[2023-07-17 07:01] LABS: BASOPHILS % 0.5 % (0.0-2.0); EOSINOPHILS % 1.4 % (0.0-5.0); HEMATOCRIT. 46.4 % (42.0-52.0); HEMOGLOBIN. 15.5 g/dL (14.0-18.0); LYMPHOCYTES % 14.8 % (20.0-50.0); MEAN CORPUSCULAR HEMOGLOBIN 30.5 pg (28.0-32.0); MEAN CORPUSCULAR HGB CONC 33.3 g/dL (31.0-37.0); MEAN CORPUSCULAR VOLUME 91.6 fL (80.0-94.0); MEAN PLATELET VOLUME 9.5 fl (7.4-10.4); MONOCYTES % 7.2 % (2.0-8.0); NEUTROPHILS % 76.1 % (40.0-76.0); PLATELET 228 x1000/uL (130-400); RED BLOOD CELL COUNT 5.07 mill/uL (4.7-6.1); RED CELL DISTRIBUTION WIDTH 12.8 % (11.6-14.6); WHITE BLOOD COUNT 8.8 x1000/uL (4.5-11.0)
[2023-07-17 07:24] LABS: CHLORIDE 109 mEq/L (98-107); INDEX HEMOLYSI 1 (1-3); INDEX ICTERIC 1 (1-4); INDEX LIPEMIC 1 (1-3); POTASSIUM 3.4 mEq/L (3.5-5.1); SODIUM 136 mEq/L (136-145)
[2023-07-17 07:31] LABS: ALANINE AMINOTRANSFERASE 44 IU/L (13-61); ALBUMIN 2.6 g/dL (3.4-5.0); ASPARTATE AMINOTRANSFERASE 31 IU/L (15-37); BILIRUBIN TOTAL 0.2 mg/dL (0.1-1.0); CALCIUM 8.7 mg/dL (8.5-10.1); CARBON DIOXIDE 24 mEq/L (21-32); GLUCOSE 150 mg/dL (70-105); PROTEIN TOTAL 7.5 g/dL (6.0-8.3); UREA NITROGEN BLOOD 13 mg/dL (7-21)
== END 2023-07-17 06:56 | disposition left against medical advice (07) ==
LOC: ER 04:37 → CANBEDREQ 07-19 19:54
DX: E11.649 Type 2 diabetes mellitus with hypoglycemia without coma (principal); R51.9 Headache, unspecified; I10 Essential (primary) hypertension; E11.9 Type 2 diabetes mellitus without complications; Z98.890 Other specified postprocedural states; Z86.59 Personal history of other mental and behavioral disorders
CPT/HCPCS: 36415; 80053; 82962; 85025; 93005; 96374; 99285

== ENCOUNTER 2023-09-21 09:37 | Emergency (ER) | payer MEDICAID ==
[~2023-09-21] VITALS: Ht 170.2 cm; Wt 70.0 kg
[2023-09-21 09:39] VITALS: O2SAT 99
[2023-09-21] MEDS ORDERED: DEXTROSE 50% WATER 50ML SYRINGE IV ONE ×2 (10:00→11:45)
[2023-09-21 10:20] LABS: BASOPHILS % 1.2 % (0.0-2.0); EOSINOPHILS % 4.4 % (0.0-5.0); HEMATOCRIT. 48.5 % (42.0-52.0); HEMOGLOBIN. 15.5 g/dL (14.0-18.0); LYMPHOCYTES % 51.8 % (20.0-50.0); MEAN CORPUSCULAR HEMOGLOBIN 31.2 pg (28.0-32.0); MEAN CORPUSCULAR HGB CONC 31.9 g/dL (31.0-37.0); MEAN CORPUSCULAR VOLUME 97.7 fL (80.0-94.0); MEAN PLATELET VOLUME 9.6 fl (7.4-10.4); NEUTROPHILS % 37.6 % (40.0-76.0); PLATELET 213 x1000/uL (130-400); RED BLOOD CELL COUNT 4.97 mill/uL (4.7-6.1); RED CELL DISTRIBUTION WIDTH 14.4 % (11.6-14.6); WHITE BLOOD COUNT 7.3 x1000/uL (4.5-11.0)
[2023-09-21 10:50] LABS: ALANINE AMINOTRANSFERASE 38 IU/L (13-61); ALBUMIN 2.5 g/dL (3.4-5.0); ASPARTATE AMINOTRANSFERASE 50 IU/L (15-37); BILIRUBIN TOTAL 0.2 mg/dL (0.1-1.0); CALCIUM 8.9 mg/dL (8.5-10.1); CARBON DIOXIDE 12 mEq/L (21-32); CHLORIDE 113 mEq/L (98-107); ETHANOL BLOOD 11 mg/dL (<10); GLUCOSE 56 mg/dL (70-105); INDEX HEMOLYSI 4 (1-3); INDEX ICTERIC 1 (1-4); INDEX LIPEMIC 1 (1-3); SODIUM 144 mEq/L (136-145); TROPONIN I HIGH SENSITIVITY 10 ng/L (<78); UREA NITROGEN BLOOD 12 mg/dL (7-21)
[2023-09-21] MEDS ORDERED: DEXTROSE 10% WATER 500 ML IV ONE (11:45)
[2023-09-21 13:11] LABS: CLARITY URINE CLOUDY (CLEAR); COLOR URINE YELLOW (YELLOW); GLUCOSE URINE 2+ (NEGATIVE); KETONES URINE NEGATIVE (NEGATIVE); LEUKOCYTE ESTERASE URINE NEGATIVE (NEGATIVE); NITRITE URINE NEGATIVE (NEGATIVE); OCCULT BLOOD URINE 1+ (NEGATIVE); PH URINE 5.5 (4.5-8.0); PROTEIN URINE 3+ (NEGATIVE); SPECIFIC GRAVITY URINE 1.012 (1.005-1.030); UROBILINOGEN URINE 0.2 E.U./dL (0.2-1.0)
[2023-09-21 13:42] LABS: SQUAMOUS EPITHELIAL CELL URINE NONE SEEN /lpf (RARE/1+)
[2023-09-21 13:44] LABS: BACTERIA URINE TRACE; WBC URINE 0-2 /hpf (0-2)
[2023-09-21 13:48] LABS: *AMPHETAMINES SCREEN URINE NEGATIVE (NEGATIVE); *BARBITURATES SCREEN URINE NEGATIVE (NEGATIVE); *BENZODIAZEPINES SCREEN URINE NEGATIVE (NEGATIVE); *COCAINE SCREEN URINE NEGATIVE (NEGATIVE); CANNABINOID URINE SCREEN NEGATIVE (NEGATIVE); ECSTASY MDMA SCREEN URINE NEGATIVE (NEGATIVE); METHADONE URINE SCREEN NEGATIVE (NEGATIVE); OPIATES URINE SCREEN NEGATIVE (NEGATIVE); PHENCYCLIDINE URINE SCREEN NEGATIVE (NEGATIVE)
[2023-09-21 14:22] VITALS: BP 180/82; PULSE 94; RESP 14; TEMP 98.3
== END 2023-09-21 14:24 | disposition left against medical advice (07) ==
LOC: ER 09:48 → EDBEDREQ 13:33 → EDBEDREQTM 13:33 → ER 14:24
DX: E11.65 Type 2 diabetes mellitus with hyperglycemia (principal); I10 Essential (primary) hypertension; Z98.890 Other specified postprocedural states
CPT/HCPCS: 80053; 80305; 81003; 80320; 82962; 85025; 84484; 36415; 96365; 96376; 99284; Z7610 ×4; G0480

== ENCOUNTER 2023-10-05 02:49 | Emergency (ER) | payer MEDICAID ==
[~2023-10-05] VITALS: Ht 165.1 cm; Wt 84.0 kg
[2023-10-05 03:13] VITALS: O2SAT 100
[2023-10-05] MEDS ORDERED: LEVETIRACETAM 1000MG PREMIX 100 ML IV ONE (04:00)
[2023-10-05 04:41] LABS: BASOPHILS % 1.2 % (0.0-2.0); EOSINOPHILS % 2.4 % (0.0-5.0); HEMATOCRIT. 44.9 % (42.0-52.0); HEMOGLOBIN. 15.3 g/dL (14.0-18.0); LYMPHOCYTES % 22.4 % (20.0-50.0); MEAN PLATELET VOLUME 9.8 fl (7.4-10.4); MONOCYTES % 6.7 % (2.0-8.0); NEUTROPHILS % 67.3 % (40.0-76.0); PLATELET 246 x1000/uL (130-400); RED BLOOD CELL COUNT 4.78 mill/uL (4.7-6.1); RED CELL DISTRIBUTION WIDTH 13.1 % (11.6-14.6); WHITE BLOOD COUNT 7.6 x1000/uL (4.5-11.0)
[2023-10-05 05:05] LABS: ALANINE AMINOTRANSFERASE 27 IU/L (10-49); ALBUMIN 3.8 g/dL (3.2-4.8); ASPARTATE AMINOTRANSFERASE 31 IU/L (<34); BILIRUBIN TOTAL 0.3 mg/dL (0.1-1.0); CALCIUM 9.4 mg/dL (8.7-10.4); CARBON DIOXIDE 32 mEq/L (21-32); CHLORIDE 106 mEq/L (98-107); CREATININE 0.8 mg/dL (0.6-1.3); GLUCOSE 71 mg/dL (70-105); POTASSIUM 3.6 mEq/L (3.5-5.1); SODIUM 143 mEq/L (136-145); UREA NITROGEN BLOOD 9 mg/dL (9-23)
[2023-10-05 11:30] VITALS: BP 169/84; PULSE 92; RESP 12; TEMP 97.9
== END 2023-10-05 11:45 | disposition home or self-care (01) ==
LOC: ER 02:49
DX: R56.9 Unspecified convulsions (principal); E11.649 Type 2 diabetes mellitus with hypoglycemia without coma; F12.10 Cannabis abuse, uncomplicated
CPT/HCPCS: 99285; 96365; 96366; 80053; 83735; 85025; 36415; 82962; J1953

== ENCOUNTER 2023-10-14 13:12 | Emergency (ER) | payer MEDICAID ==
[~2023-10-14] VITALS: Ht 172.7 cm; Wt 75.0 kg
[2023-10-14 13:13] VITALS: O2SAT 98
[2023-10-14] MEDS ORDERED: DEXTROSE 50% WATER 50ML SYRINGE IV ONE (13:30)
[2023-10-14] MEDS ORDERED: SODIUM CHLORIDE 0.9% 1,000 ML IV ONE (13:30)
[2023-10-14] MEDS ORDERED: CLONIDINE 0.2MG TABLET PO ONE (13:45)
[2023-10-14] MEDS ORDERED: CLONIDINE 0.1MG TABLET PO SCH (14:00)
[2023-10-14 14:07] LABS: HEMATOCRIT. 44.1 % (42.0-52.0); HEMOGLOBIN. 14.5 g/dL (14.0-18.0); MEAN CORPUSCULAR HEMOGLOBIN 30.8 pg (28.0-32.0); MEAN CORPUSCULAR HGB CONC 32.9 g/dL (31.0-37.0); MEAN CORPUSCULAR VOLUME 93.7 fL (80.0-94.0); MEAN PLATELET VOLUME 9.6 fl (7.4-10.4); PLATELET 210 x1000/uL (130-400); RED CELL DISTRIBUTION WIDTH 12.5 % (11.6-14.6); WHITE BLOOD COUNT 13.6 x1000/uL (4.5-11.0)
[2023-10-14 14:09] LABS: DIFFERENTIAL COMMENT 1
[2023-10-14 14:31] LABS: ALANINE AMINOTRANSFERASE 31 IU/L (10-49); ALBUMIN 3.5 g/dL (3.2-4.8); ASPARTATE AMINOTRANSFERASE 40 IU/L (<34); BILIRUBIN TOTAL 0.3 mg/dL (0.1-1.0); CALCIUM 8.9 mg/dL (8.7-10.4); CARBON DIOXIDE 27 mEq/L (21-32); CHLORIDE 105 mEq/L (98-107); GLUCOSE 126 mg/dL (70-105); POTASSIUM 3.3 mEq/L (3.5-5.1); PROTEIN TOTAL 6.5 g/dL (6.0-8.3); SODIUM 139 mEq/L (136-145); UREA NITROGEN BLOOD 11 mg/dL (9-23)
[2023-10-14 15:20] LABS: PLATELET ESTIMATE NORMAL
[2023-10-14 15:30] VITALS: BP 161/72; PULSE 99; RESP 17; TEMP 97.9
== END 2023-10-14 16:18 | disposition home or self-care (01) ==
LOC: ER 13:12
DX: R53.1 Weakness (principal); E11.65 Type 2 diabetes mellitus with hyperglycemia; I10 Essential (primary) hypertension; F12.10 Cannabis abuse, uncomplicated
CPT/HCPCS: 80053; 82962; 85025; 36415; 71045; 93005; 96360; 99285; J7030; Z7610 ×3

== ENCOUNTER 2023-11-11 03:42 | Emergency (ER) | payer MEDICAID ==
[~2023-11-11] VITALS: Ht 175.3 cm; Wt 80.0 kg
[2023-11-11 03:58] VITALS: O2SAT 100
[2023-11-11 04:28] LABS: BASOPHILS % 0.6 % (0.0-2.0); EOSINOPHILS % 2.9 % (0.0-5.0); HEMATOCRIT. 47.1 % (42.0-52.0); HEMOGLOBIN. 15.3 g/dL (14.0-18.0); LYMPHOCYTES % 34.7 % (20.0-50.0); MEAN CORPUSCULAR HEMOGLOBIN 30.9 pg (28.0-32.0); MEAN CORPUSCULAR HGB CONC 32.5 g/dL (31.0-37.0); MEAN PLATELET VOLUME 9.8 fl (7.4-10.4); NEUTROPHILS % 57.8 % (40.0-76.0); PLATELET 187 x1000/uL (130-400); RED BLOOD CELL COUNT 4.96 mill/uL (4.7-6.1); RED CELL DISTRIBUTION WIDTH 12.7 % (11.6-14.6); WHITE BLOOD COUNT 5.1 x1000/uL (4.5-11.0)
[2023-11-11 04:48] LABS: ALANINE AMINOTRANSFERASE 50 IU/L (10-49); ALBUMIN 3.5 g/dL (3.2-4.8); ASPARTATE AMINOTRANSFERASE 46 IU/L (<34); BETA HYDROXYBUTYRATE 0.6 mMol/L (0.0-0.3); BILIRUBIN TOTAL 0.2 mg/dL (0.1-1.0); CARBON DIOXIDE 24 mEq/L (21-32); CHLORIDE 101 mEq/L (98-107); CREATININE 1.3 mg/dL (0.6-1.3); ETHANOL BLOOD 179 mg/dL (<10); POTASSIUM 3.6 mEq/L (3.5-5.1); PROTEIN TOTAL 6.9 g/dL (6.0-8.3); SODIUM 136 mEq/L (136-145); UREA NITROGEN BLOOD 13 mg/dL (9-23)
[2023-11-11 04:51] LABS: GLUCOSE 447 mg/dL (70-105)
[2023-11-11] MEDS ORDERED: INSULIN REGULAR (HUMULIN R) 300UNITS/3ML VIAL SUBCUT ONE (05:15)
[2023-11-11 10:32] VITALS: BP 171/82; PULSE 99; RESP 14; TEMP 98.8
== END 2023-11-11 11:51 | disposition home or self-care (01) ==
LOC: ER 03:50
DX: F10.129 Alcohol abuse with intoxication, unspecified (principal); E11.65 Type 2 diabetes mellitus with hyperglycemia; F12.10 Cannabis abuse, uncomplicated; R79.89 Other specified abnormal findings of blood chemistry; Y90.8 Blood alcohol level of 240 mg/100 ml or more
CPT/HCPCS: 80053; 82010; 80320; 82962; 85025; 36415; 96372; 99283; J1815; Z7610; G0480